=== PATIENT | male | born 1960 | race Hispanic/Latino ===

== ENCOUNTER 2025-02-26 18:34 | Emergency (ER) | payer OTHER ==
[~2025-02-26] VITALS: Ht 177.8 cm; Wt 113.9 kg
--- NOTE | 2025-02-26 18:45 | ERN ---
General Chief Complaint: Mechanical Fall Stated Complaint: FALL Time Seen by MD: 18:36 Source: patient History of Present Illness Initial Comments PATIENT IS A 64 MALE PEOPLE COMING IN TO BE EVALUATED AFTER HE HAD A FALL EARLIER TODAY. PATIENT STATES THAT HE HAS A HISTORY OF MENISCUS DAMAGE AND WAS PENDING A SURGERY FIVE YEARS AGO. HE HELD OFF ON THE SURGERY IN HIS PENDING RE- EVALUATION BY ORTHO. Allergies: Coded Allergies: No Known Allergies (Unverified Allergy, Unknown, 02/26/25) Past Medical History Past Medical History: Diabetes-Type II, High Cholesterol, Hypertension Past Surgical History: Appendectomy, Other Surgical History Other: RIGHT ARM, ROS Dictation CONSTITUTIONAL: NO CHILLS, NO FEVER, NO WEAKNESS, NO DIAPHORESIS, NO MALAISE. HEAD/FACE: NO SIGNS OF TRAUMA. EENT: NO EYE PAIN, NO BLURRED VISION, NO TEARING, NO DOUBLE VISION, NO EAR PAIN, NO EAR DISCHARGE, NO NOSE PAIN, NO NASAL CONGESTION, NO THROAT PAIN, NO THROAT SWELLING, NO MOUTH PAIN. RESPIRATORY: NO COUGH, NO ORTHOPNEA, NO SOB, NO STRIDOR, NO WHEEZING. CARDIOVASCULAR: NO CHEST PAIN, NO EDEMA, NO PALPITATIONS, NO SYNCOPE. GASTROINTESTINAL/ABDOMINAL: NO ABDOMINAL PAIN, NO CONSTIPATION, NO DIARRHEA, NO NAUSEA, NO VOMITING. GENITOURINARY: NO ABNORMAL DISCHARGE, NO DYSURIA, NO FREQUENT URINATION, NO HEMATURIA. NO COMPLAINTS OF PAIN IN THE GENITALS. MUSCULOSKELETAL: NO BACK PAIN, NO GOUT, JOINT PAIN, NO JOINT SWELLING, MUSCLE PAIN, MUSCLE STIFFNESS, NO NECK PAIN. INTEGUMENTARY: NO CHANGE IN COLOR, NO CHANGE IN HAIR/NAILS, NO DRYNESS, NO LESION, NO LUMPS, NO RASH. NEUROLOGICAL/PSYCH: NO ANXIETY, NOT DEPRESSED, NO EMOTIONAL PROBLEM, NO HEADACHE, NO NUMBNESS, NO PRE-EXISTING DEFICIT, NO HISTORY OF SEIZURES, NO TREMORS, NO WEAKNESS. HEMATOLOGIC/LYMPHATIC: NOT ANEMIC, NO HISTORY OF BLOOD CLOTS, NO APPARENT BLEEDING, NO BRUISING, GLANDS NOT SWOLLEN. ALL SYSTEMS NEGATIVE, EXCEPT NOTED. Physical Exam Physical Exam Dictation VITAL SIGNS: REVIEWED. GENERAL APPEARANCE: ALERT, ORIENTED X3, NO ACUTE DISTRESS, OBESE. HEAD AND FACE: NON-TRAUMATIC. EYES: PERRL, PINK CONJUNCTIVAS, EYELID NO TRAUMA, ANTERIOR CHAMBER CLEAR. EARS: PINNAS INTACT AND NO SIGNS OF TRAUMA OR ERYTHEMA. EAR CANALS CLEAR AND NO DISCHARGE. TMS NO ERYTHEMA. NOSE: NO DISCHARGE, NO BLEEDING. OROPHARYNX: MOUTH NORMAL, TEETH NO CARIES, TONGUE PINK. PHARYNX CLEAR, NO ERYTHEMA. TONSILS NO EXUDATES, NO ABSCESSES NOTED. MUCOUS MEMBRANE MOIST. NECK: SUPPLE, NON-TENDER, NO THYROMEGALY, NO MASSES, NO JVD, NO BRUITS. BREAST: DEFERRED. CHEST: NO TENDERNESS, NO CREPITUS, NO PARADOXICAL MOVEMENT, NO RETRACTIONS. LUNGS: CLEAR, WELL-VENTILATED, SYMMETRIC, NO RALES, NO WHEEZING, NO RHONCHI, NO STRIDOR, GOOD BREATH SOUNDS BILATERALLY. HEART: REGULAR RATE, REGULAR RHYTHM, NO MURMUR, NO GALLOPS. VASCULAR: NO PERIPHERAL EDEMA. ABDOMEN: SOFT, POSITIVE BOWEL SOUNDS, NONDISTENDED, NO GUARDING, NONTENDER, NO REBOUND, NO MASSES NO HEPATOMEGALY, NO SPLENOMEGALY, NO MENDOZA'S SIGN, NO HERNIAS. RECTAL: DEFERRED. GENITAL: DEFERRED. NEUROLOGICAL: NORMAL SPEECH, GROSS MOTOR FUNCTION INTACT, GROSS SENSORY FUNCTION INTACT. MUSCULOSKELETAL: NECK NONTENDER, FULL RANGE OF MOTION, BACK NONTENDER, FULL RANGE OF MOTION. EXTREMITIES: NONTENDER, FULL RANGE OF MOTION. RIGHT KNEE DISCOMFORT ON PALPATIO N SKIN: COLOR PINK, DRY, NO TURGOR, NO RASH, NO LACERATIONS, NO ABRASIONS, NO CONTUSIONS. LYMPHATICS: DEFERRED. MDM MDM: DIFFERENTIAL DIAGNOSIS: KNEE STRAIN, KNEE CONTUSION, FALL, HIP STRAIN, RATIONALE: TESTS CONSIDERED AND ORDERED SECONDARY TO SHARED DECISION MAKING INCLUDE: PREVIOUS OUTSIDE RECORDS REVIEWED: OLD ER VISITS. RISK OF COMPLICATION AND/OR MORBIDITY OR MORTALITY OF PATIENT MANAGEMENT: NONE MEDICATIONS-PER MEDICATION RECONCILIATION NEED FOR HOSPITALIZATION: PATIENT DOES NOT MEET CRITERIA FOR HOSPITALIZATION. NEED FOR EMERGENCY MAJOR/MINOR SURGERY: NO THERE ARE NO SOCIAL CONCERNS WITH THIS PATIENT. PRESCRIPTION DRUG MANAGEMENT PRESCRIPTIONS WILL INCLUDE SYMPTOMATIC CARE PATIENT'S PRIOR EXTERNAL MEDICAL RECORDS FROM OTHER ER VISITS WERE REVIEWED BY ME INDICATED. PRIOR TESTING AND RESULTS FROM PREVIOUS VISITS WERE REVIEWED. PRIOR TESTS WERE TAKEN INTO ACCOUNT WITH MEDICAL DECISION MAKING AND RESOURCE UTILIZATION, INDEPENDENT HISTORIAN/HISTORIANS WERE USED TO OBTAIN COMPLETE MEDICAL HISTORY. I INDEPENDENTLY INTERPRETED THE TEST THAT WERE PERFORMED, RESULTS WERE REVIEWED BY ME AND CONSIDERED FINDINGS ON RADIOLOGY IF ORDERED. MEDICAL MANAGEMENT AND EXAMINATION INTERPRETATION DISCUSSIONS WERE HAD BY ME WITH OTHER QUALIFIED HEALTHCARE PROFESSIONALS INDICATED FOR THE PATIENT'S CARE. Plain films are negative for acute fracture. Mild arthritic changes in the patient's hips bilaterally. I explained the results to the patient we will discharge him home with a brace. He will follow up with his primary care physician to schedule a repair of his meniscus. ED Course Orders Procedure Category Date Status Time Knee 3vws Rt RAD 02/26/25 Taken 18:40 Hip Unilat 2-3vw Right RAD 02/26/25 Taken 18:40 Lumbar Spine 2-3vws RAD 02/26/25 Taken 18:40 Acetaminophen 325 Tab PHA 02/26/25 Complete (Tylenol 325mg Tab 20:00 Current Medications Medications (Trade) Dose Ordered Sig/Trey Route PRN Reason Start Time Stop Time Status Last Admin Dose Admin Acetaminophen (TYLenol 325MG TAB) 650 mg ONCE ONCE PO 02/26/25 20:00 02/26/25 20:01 DC 02/26/25 20:07 Vital Signs Date Time Temp Pulse Resp B/P (MAP) Pulse Ox O2 Delivery O2 Flow Rate FiO2 02/26/25 18:43 98.2 50 16 135/45 98 Room Air* 0 21 02/26/25 18:36 98.2 49 20 137/40 99 Room Air 0 DX & DISP Disposition: Discharge Departure Impression: Primary Impression: Fall Additional Impression: Knee contusion Condition: Stable Additional Instructions: By you do have quite probably an old meniscus tear and you do have pain in her right knee preventing you from fully extending it, we have no evidence of an acute fracture on plain films. Please follow-up with her primary care physician for a referral to an orthopedic surgeon so that he can evaluate you and repair your meniscus injury or what other surgeries may need to be performed for you to walk normally again. The best thing to treat the pain right now would be Motrin. Please take it along with an antacid to help protect her stomach. Referrals: SELF,REFERRAL (PCP) RIVAS SALINAS MD Feb 26, 2025 18:45 ELISHA DUONG MD Feb 26, 2025 20:24
--- NOTE | 2025-02-26 19:19 | NUR ---
TRANSFERED CARE TO [facility] AT THIS TIME
--- NOTE | 2025-02-26 20:38 | HMCIMG ---
EXAM: CR Pelvis and Right Hip, 2 views. CLINICAL HISTORY: Fall. COMPARISON: None provided. FINDINGS: No acute fracture or aggressive appearing osseous lesion. Joint spaces are within normal limits. The soft tissues are unremarkable. IMPRESSION: No acute bony abnormality is evident. /[place]
--- NOTE | 2025-02-26 20:39 | HMCIMG ---
EXAM: CR Lumbar Spine, 3 views. CLINICAL HISTORY: Fall. COMPARISON: None provided. FINDINGS: Mild spondylosis. Lumbar alignment is within normal limits. Normal intervertebral disc spaces. Normal vertebral body heights. No acute fracture. Soft tissues are within normal limits. IMPRESSION: No acute bony abnormality is evident. Mild spondylosis. /[place]
--- NOTE | 2025-02-26 20:44 | NUR ---
PATIENT REFUSED KNEE IMMOBOLIZER, REQUESTED RIGHT KNEE DOUGIE BANDAGE AND PLACED ON PATIENT.
[2025-02-26 20:45] VITALS: BP 130/78; PULSE 74; RESP 18; TEMP 98.3; O2SAT 98
--- NOTE | 2025-02-26 21:02 | HMCIMG ---
EXAM: CR right Knee, 3 View. CLINICAL HISTORY: FALL COMPARISON: None provided. FINDINGS: BONES: No fracture in the right knee. JOINTS: Mild degenerative change. No dislocation. SOFT TISSUES: The soft tissues are unremarkable. IMPRESSION: 1. No fracture or dislocation in the right knee. 2. Mild degenerative change. /[place]
== END 2025-02-26 20:47 | disposition home or self-care (01) ==
LOC: EDH 18:34
DX: S80.01XA Contusion of right knee, initial encounter (principal); E11.9 Type 2 diabetes mellitus without complications; E78.00 Pure hypercholesterolemia, unspecified; I10 Essential (primary) hypertension; Z90.49 Acquired absence of other specified parts of digestive tract; W18.39XA Other fall on same level, initial encounter; Y93.89 Activity, other specified; Y92.89 Other specified places as the place of occurrence of the external cause; Y99.8 Other external cause status
CPT/HCPCS: 72100; 73502; 73562; 99284